=== PATIENT | female | born 1945 | race Caucasian/White ===

== ENCOUNTER → 2017-01-12 | Outpatient (CLI) | payer MEDICARE, OTHER ==
[~2017-01-12] VITALS: Ht 154.9 cm; Wt 89.3 kg
[~2017-01-12] MED LIST: ADVAIR 100-501 EACH INH; AMBIEN5 MG PO; ASPIRIN EC81 MG PO; KEFLEX500 MG PO; LYRICA 50MG CAP50 MG PO; NEURONTIN100 MG PO; NORCO 5-325 TA1 EACH PO; PRILOSEC20 MG PO; PROZAC20 MG PO; REFRESH PLUS1 EACH OPHTH; RENVELA800 MG PO; SENSIPAR 30 MG30 MG PO; TYLENOL325 MG PO
--- NOTE | ~2017-01-12 | OR ---
PATIENT'S NAME: GRIFFIN LOPEZ [facility] AGE: 71 Y [address] ROOM: [place] [address] LOCATION: [facility] ADMIT DATE: 01/12/2017 OR/Procedure Report DISCHARGE DATE: FAMILY PHYSICIAN: KRISTIN STEIN MD ATTENDING PHYSICIAN: MATTY PIZANO SURGEON: Matty Pizano MD PERSONNEL TRAINING OFFICER: DATE OF PROCEDURE: 01/12/2017 PREOPERATIVE DIAGNOSIS: Occluded right AV fistula. POSTOPERATIVE DIAGNOSIS: Occluded right AV fistula. PROCEDURE: Fistulogram, attempt to declot unsuccessful. HEALTH OCCUPATIONS TEACHER: Eunice Lackey MD ANESTHESIA: MAC local. ESTIMATED BLOOD LOSS: 5 mL. OPERATIVE FINDINGS: Unable to recannulate brachiocephalic AV fistula on the right arm. DESCRIPTION OF PROCEDURE: The patient was brought to the lab rep and placed supine on the lab rep table, prepped and draped in a sterile manner. Preoperative time-out was performed. The patient received preoperative antibiotics. We gained access using ultrasound guidance. Fistula was occluded with no flow. We used a micropuncture kit after infiltrating the skin with 1% lidocaine and then exchanged using Seldinger technique for a 5- Greek short sheath. We were then able to perform a fistulogram, which showed extensive clot in the fistula. We were able to cross it with a wire and we then performed several pull-down maneuvers with 8 mm balloon, but we were unable to recannulize the fistula. The patient did not have dialysis on Sunday because that was occluded and likely was occluded from before that before recannulize. The patient will need a creation of new fistula. Sheath was pulled. Pressure was held. The patient tolerated the procedure well and transferred to the recovery room home later that day. MATTY PIZANO MD FKM/modl PATIENT'S NAME: GRIFFIN LOPEZ [facility] AGE: 71 Y [address] ROOM: [place] [id number] [facility] ADMIT DATE: 01/12/2017 OR/Procedure Report DISCHARGE DATE: FAMILY PHYSICIAN: KRISTIN STEIN MD ATTENDING PHYSICIAN: MATTY PIZANO /[id number] d: 01/12/17 2142 t: 01/17/17 1544, OPERATIVE SUMMARY
[2017-01-12 14:46] LABS: BASOPHIL % 0.2 %; EOSINOPHIL # 0.1 K/uL (0.0-0.5); EOSINOPHIL % 0.9 %; HEMATOCRIT 27.5 % (33.0-46.0); IMMATURE GRANULOCYTE % 0.8 %; LYMPHOCYTE # 0.8 K/uL (0.8-4.0); LYMPHOCYTE % 15.6 %; MCHC 29.1 gm/dL (32.0-36.5); MCV 68.8 fl (83.0-98.0); MONOCYTE # 0.4 K/uL (0.0-1.0); MONOCYTE % 6.8 %; NEUTROPHIL % 75.7 %; NRBC % 0 /100WBC (0-0.00); PLATELET COUNT 126 K/uL (150-450); RDW-CV 23.1 % (11.9-14.6); WBC 5.3 K/uL (4.0-11.0)
[2017-01-12 14:52] LABS: INR - (THERAPEUTIC) 1.08 (0.92-1.07); PROTIME 11.4 SECONDS (9.8-11.4)
[2017-01-12 14:57] LABS: ALBUMIN 2.7 gm/dL (3.5-5.0); CALCIUM 8.7 mg/dL (8.5-10.5); PHOSPHORUS 8.6 mg/dL (2.5-4.9)
[2017-01-12 15:00] LABS: ANION GAP 18.8 (10.0-19.0); CREATININE 9.9 mg/dL (0.5-1.1); POTASSIUM 5.8 mMol/L (3.7-5.1)
== END | disposition disaster alternative care site (69) ==
LOC: GPOC 09:00 → GCAT 09:00
PROVIDERS: Surgery Vascular Surgery
PROC: B51MYZZ Fluoroscopy of Right Upper Extremity Veins using Other Contrast (ICD-10-PCS; principal; 2017-01-12)
PROC: 05H633Z Insertion of Infusion Device into Left Subclavian Vein, Percutaneous Approach (ICD-10-PCS; 2017-01-12)
PROC: B547ZZA Ultrasonography of Left Subclavian Vein, Guidance (ICD-10-PCS; 2017-01-12)
DX: Z45.2 Encounter for adjustment and management of vascular access device (principal); N18.6 End stage renal disease
CPT/HCPCS: C1725; C1750; C1769; J1644; J2001; J2250; J2720; J3010; J7030